=== PATIENT | male | born 1960 | race Caucasian/White ===

== ENCOUNTER → 2023-01-29 10:30 | Outpatient (CLI) | payer BC, SELFPAY ==
--- NOTE | ~2023-01-29 | XR_ITS ---
XR cervical spine 4-5V 01/29/2023 10:56 Indication: Radiculopathy Procedure: 6 views cervical spine Comparison: 12/14/2003 Findings: There is disc narrowing at C4-5, C5-6 and C6-7. There is degenerative anterolisthesis at C4 -5 and C6-7. There is multilevel facet hypertrophy. No prevertebral soft tissue swelling. No acute fr acture. Odontoid process is normal. Lateral masses normally aligned. Lung apices are normal. Impression: 1: Interval progression of moderate cervical spondylosis. Reviewed, dictated and finalized at location L. Impression: 1: Interval progression of moderate cervical spondylosis.
== END ==
DX: M43.02 Spondylolysis, cervical region (principal); M54.10 Radiculopathy, site unspecified
CPT/HCPCS: 72050

== ENCOUNTER 2023-06-23 10:13 | Emergency (ER) | payer BC, SELFPAY ==
[2023-06-23 10:34] VITALS: BP 160/92; PULSE 94; RESP 14; TEMP 36.8; O2SAT 100
--- NOTE | 2023-06-23 10:39 | ED.ANIMALBIT ---
HPI - Animal Bite General Chief Complaint: Animal Bite Stated Complaint: Dog Bite Source: patient, RN notes reviewed and old records reviewed Mode of arrival: ambulatory Limitations: no limitations History of Present Illness HPI narrative: 62-year-old male patient presents to [facility] with complaint of dog bite to right hand that occurred yesterday. Patient states the dog is a friend of his and is up-to-date on all vaccinations. Patient states he is worried cusses area is now red and swollen. Related Data Home Medications Medication Instructions Recorded Confirmed celecoxib 200 mg capsule 200 mg PO DAILY 06/23/23 06/23/23 telmisartan 40 mg tablet 40 mg PO DAILY 06/23/23 06/23/23 Allergies Allergy/AdvReac Type Severity Reaction Status Date / Time No Known Allergies Allergy Verified 06/23/23 10:33 Review of Systems Constitutional: Constitutional: Reports no additional constitutional complaints, Denies body ache(s), Denies chills, Denies fatigue, Denies fever(s) and Denies headache(s) Eyes: Eyes: Reports no additional eye complaints and Denies blurry vision ENT: Reports system reviewed and no additional complaints, except as documented, Denies vertigo, Denies dizziness, Denies ear discharge, Denies otalgia, Denies facial pain, Denies headache(s), Denies nasal congestion, Denies nasal discharge, Denies sinus pain, Denies sinus pressure and Denies sore throat Cardiovascular: Cardiovascular: Reports no additional cardiovascular complaints, Denies chest pain, Denies chest pain at rest, Denies rapid heart rate and Denies dyspnea Respiratory: Respiratory: Reports no additional respiratory complaints, Denies chest congestion, Denies cough, Denies pain on inspiration, Denies pain with cough and Denies dyspnea Gastrointestinal: Gastrointestinal: Denies abdominal pain, Denies diarrhea, Denies nausea and Denies vomiting Integumentary/Breasts: Skin/Breast: Reports as per HPI, Denies rash and Reports wounds Neurologic: Reports system reviewed and no additional complaints, except as documented, Denies vertigo, Denies dizziness and Denies headache(s) Endocrine: Endocrine: Denies fatigue PMFSH Comments At the time of my signature, I reviewed and agree with the nursing past medical, surgical, social, and family history. There is no relevant family history pertinent to the patient complaint. Exam Const: General: cooperative, healthy appearing, no acute distress and well nourished Nutritional Appearance: well nourished Orientation/consciousness: patient oriented x3 Limitations: no limitations HENMT: Head: normal to inspection and normocephalic Ears: external ears normal Face/Nose/Sinus: normal facial exam Face and sinus: normal facial exam Mouth: Yes moist mucous membranes Eyes: General: appearance normal, both eyes and all related structures Sclera: sclerae normal Pupils: Equal, round and reactive pupils present Resp: Effort & Inspection: normal respiratory effort, able to speak in complete sentences, no audible wheezes, no cough, no respiratory distress and no retractions Skin: General skin exam: normal color, no rashes or lesions noted and wounds noted Wounds: wounds noted ( 4 puncture wounds to right hand with surrounding erythema) Full body images: 1. for superficial puncture wounds, consistent with dog bite. Positive tenderness positive swelling positive erythema Neuro: General: patient oriented x3 Cranial nerves: Yes Equal, round and reactive pupils present Psych: Appearance: grossly normal Mental Status: mental status grossly normal Speech and movement: Normal speech and movement present Affect: normal affect Course Course Emergency Course: Patient is aware of diagnosis, understands and agrees to treatment plan.? Anticipatory guidance given.? Patient agrees to follow-up as directed and is aware of reasons to seek care at the emergency department. Some parts of this dictation were generated by vo
== END 2023-06-23 10:50 | disposition home or self-care (01) ==
PROVIDERS: Emergency Provider Registered Nurse; PCP Internal Medicine
DX: S61.451A Open bite of right hand, initial encounter (principal); W54.0XXA Bitten by dog, initial encounter
CPT/HCPCS: 99213; G0463